=== PATIENT | female | born 1930 | race Caucasian/White ===

== ENCOUNTER 2017-03-08 12:27 | Observation (INO) | payer OTHER, BC ==
[~2017-03-08] VITALS: Ht 165.1 cm; Wt 64.5 kg
[2017-03-08 13:01] LABS: HEMATOCRIT 42.2 % (36.0-46.0); MCH 30.7 PG (29.0-34.0); MCHC 35.3 G/DL (30.0-36.0); MEAN PLAT.VOLUME 9.5 uM^3 (9.5-12.4); PLATELET COUNT 200 K/uL (156-360); RBC DIS.WIDTH-CV 11.6 % (11.8-14.6); RBC DIS.WIDTH-SD 37.2 % (39-53); RED BLOOD COUNT 4.85 M/uL (3.80-5.20); WHITE BLOOD COUNT 11.7 K/uL (4.1-10.2)
[2017-03-08 13:09] LABS: CHLORIDE 99 mEq/L (99-109); POTASSIUM 3.5 mEq/L (3.7-5.4); SODIUM 135 mEq/L (136-147)
[2017-03-08 13:11] LABS: GLUCOSE 113 mg/dL (70-99)
[2017-03-08 13:13] LABS: ANION GAP 14 MEQ/L (2-14); TOTAL BILIRUBIN 1.2 mg/dL (0.0-1.0)
[2017-03-08 13:15] LABS: ALKALINE PHOSPHATASE 57 IU/L (3-129); GFR ESTIMATE (CALCULATED) 45 mL/min/
[2017-03-08 13:16] LABS: UREA NITROGEN (BUN) 19 mg/dL (9-23)
[2017-03-08 13:18] LABS: LIPASE 26 U/L (1.0-51.0)
[2017-03-08 13:40] LABS: MAGNESIUM 2.1 mg/dL (1.3-2.7)
[2017-03-08 15:21] LABS: TROP-I INTERPRETATION NEGATIVE; TROPONIN-I 0.03 ng/mL (0.0-0.30)
[2017-03-08 15:37] LABS: ADD MIUA? YES; BILIRUBIN NEGATIVE; BLOOD NEGATIVE; COLOR STRAW ((YELLOW)); GLUCOSE (STRIP) NEGATIVE; KETONES 5; LEUKOCYTES MODERATE; NITRITE NEGATIVE; PROTEIN (STRIP) NEGATIVE; SPECIFIC GRAVITY 1.006 (1.000-1.030); UROBILINOGEN 0.2 MG/DL (0.2-1.0)
[2017-03-08 15:48] LABS: BACTERIA 2+ /HPF; EPITHELIAL CELLS RARE /HPF; HYALINE CASTS 0-5 /LPF; MUCUS 1+ /LPF; RED BLOOD CELLS 0-5 /HPF (0-5); UCUL ADDED? YES
[2017-03-08] MEDS ORDERED: FLUZONE HI180 MCG/08 IM (16:01)
[2017-03-08] MEDS ORDERED: TRAMADOL HCL50 MG PO (16:01)
[2017-03-08] MEDS ORDERED: DIOVAN HCT 81 TABLET PO (16:01)
[2017-03-08] MEDS ORDERED: ATIVAN0.5 MG PO (16:01)
[2017-03-08] MEDS ORDERED: PRAVACHOL40 MG PO (16:02)
[2017-03-08] MEDS ORDERED: SYNTHROID88 MCG PO (16:02)
[2017-03-08] MEDS ORDERED: ADVIL,NUPRIN,M200 MG PO (16:02)
[2017-03-08] MEDS ORDERED: SUPER MULTIVIT1 EACH PO (16:02)
[2017-03-08 17:45] VITALS: BP 134/65
[2017-03-08 19:11] VITALS: BP 185/48
[2017-03-08 21:09] LABS: TROP-I INTERPRETATION NEGATIVE; TROPONIN-I 0.09 ng/mL (0.0-0.30)
[2017-03-08 23:34] VITALS: BP 110/53
[2017-03-09 03:09] VITALS: BP 95/45
[2017-03-09 06:06] LABS: HEMATOCRIT 32.1 % (36.0-46.0); MCH 31.3 PG (29.0-34.0); MCHC 35.2 G/DL (30.0-36.0); MCV 88.9 FL (83-99); MEAN PLAT.VOLUME 10.3 uM^3 (9.5-12.4); PLATELET COUNT 144 K/uL (156-360); RBC DIS.WIDTH-CV 11.9 % (11.8-14.6); RBC DIS.WIDTH-SD 38.5 % (39-53); WHITE BLOOD COUNT 6.7 K/uL (4.1-10.2)
[2017-03-09 06:12] LABS: RED BLOOD COUNT 3.61 M/uL (3.80-5.20)
[2017-03-09 06:21] LABS: ANION GAP 10 MEQ/L (2-14); CHLORIDE 104 MEQ/L (99-109); GFR ESTIMATE (CALCULATED) 50 mL/min/; GLUCOSE 87 mg/dL (70-99); POTASSIUM 3.2 MEQ/L (3.7-5.4); SAMPLE HEMOLYSIS CHECK 0; SAMPLE ICTERIC CHECK 0; SAMPLE LIPEMIA CHECK 0; SODIUM 138 MEQ/L (136-147); UREA NITROGEN (BUN) 16 mg/dL (9-23)
[2017-03-09 06:24] LABS: TROP-I INTERPRETATION NEGATIVE; TROPONIN-I 0.07 ng/mL (0.0-0.30)
[2017-03-09 09:00] VITALS: BP 127/61
[2017-03-09] MEDS ORDERED: CARDIZEM CD120 M1 PO (13:51)
[2017-03-09] MEDS ORDERED: K-DUR20 MEQ PO (15:08)
== END 2017-03-09 16:05 | disposition home or self-care (01) ==
LOC: EME 12:27 → EDOF 14:39 → 4EAST 14:39 → EDOF 14:39 → ENRESERV 14:41 → EDOF 15:44 → 4EAST 17:35
PROVIDERS: Internal Medicine
DX: I48.91 Unspecified atrial fibrillation (principal); E87.6 Hypokalemia; N39.0 Urinary tract infection, site not specified; R07.89 Other chest pain; R19.7 Diarrhea, unspecified; I10 Essential (primary) hypertension; E78.5 Hyperlipidemia, unspecified; E03.9 Hypothyroidism, unspecified; F41.9 Anxiety disorder, unspecified; Z66 Do not resuscitate; Z90.710 Acquired absence of both cervix and uterus; Z90.49 Acquired absence of other specified parts of digestive tract; Z87.891 Personal history of nicotine dependence; Z79.82 Long term (current) use of aspirin; Z82.49 Family history of ischemic heart disease and other diseases of the circulatory system
CPT/HCPCS: 71010; 80048; 80053; 81003; 83690; 83735; 84439; 84443; 84484; 85027; 87086; 87177; 87493; 87506; 93005; 93306; 99281; 99285; G0378; J0696; J1650; J3480; J7030; J7040; J7050